=== PATIENT | female | born 1950 | race Caucasian/White ===

== ENCOUNTER 2017-01-22 15:44 | Emergency (ER) | payer MEDICARE ==
[2017-01-22 15:45] VITALS: BMI 29.5
[2017-01-22 15:53] VITALS: BP 151/83; PULSE 81; RESP 16; TEMP 97.8; O2SAT 95
--- NOTE | 2017-01-22 16:22 | ED PDOC ---
Upper Extremity Pain/Injury Time Seen by Provider: 01/22/17 15:57 Chief Complaint (Nursing): Upper Extremity Problem/Injury Chief Complaint (Provider): Left 3rd digit laceration History Per: Patient, Family (Daughter at bedside is translating in Hebrew for patient) Onset/Duration Of Symptoms: Hrs (prior to arrival) Additional History Per: Family Additional Complaint(s): Crystal Amato is a 66 year old right hand dominant female who presents to the emergency department with her daughter complaining of laceration to left 3rd digit sustained when patient was using a knife and accidentally cut her finger. She states she applied vaseline and came to ED. She has slight pain to affected area with no associated numbness or tingling. Patient is not sure of last tetanus. PMD: Maurice Garcia Past Medical History Reviewed: Historical Data, Nursing Documentation, Vital Signs Vital Signs: Last Vital Signs Temp 97.8 F 01/22/17 15:50 Pulse 81 01/22/17 15:50 Resp 16 01/22/17 15:50 BP 151/83 H 01/22/17 15:50 Pulse Ox 95 01/22/17 15:50 - Medical History PMH: No Chronic Diseases, Chronic Kidney Disease - Surgical History Surgical History: Cholecystectomy (26 YEARS AGO), Endoscopy - Family History Family History: States: No Known Family Hx - Living Arrangements Living Arrangements: With Family - Social History Current smoker - smoking cessation education provided: No Alcohol: None Drugs: Denies - Immunization History Hx Tetanus Toxoid Vaccination: No (not sure of last tetanus) - Home Medications Home Medications: Ambulatory Orders Medication Instructions Recorded No Known Home Med 05/01/16 - Allergies Allergies/Adverse Reactions: Allergies Allergy/AdvReac Type Severity Reaction Status Date / Time No Known Allergies Allergy Verified 05/01/16 10:49 Review of Systems ROS Statement: Except As Marked, All Systems Reviewed And Found Negative Musculoskeletal: Positive for: Hand Pain (Left 3rd digit laceration) Physical Exam - Reviewed Nursing Documentation Reviewed: Yes Vital Signs Reviewed: Yes - Physical Exam Appears: Positive for: Well, Non-toxic, No Acute Distress Skin: Positive for: Normal Color. Negative for: Rash Extremity: Positive for: Other (1.5 cm laceration to dorsal aspect of left third digit with minimal active bleeding, full rom of affected digit, normal sensation to wound and normal distal sensation) Neurologic/Psych: Positive for: Alert, Oriented - ECG O2 Sat by Pulse Oximetry: 95 (RA) Pulse Ox Interpretation: Normal Medical Decision Making Medical Decision Making: Initial Impression: 66 y/o female with laceration on dorsal aspect of left third digit Initial Plan: Lac repair Patient refused tetanus, states she prefers to check with her PMD before she receives booster. Patient was given wound care instructions. Scribe Attestation: Documented by Larry Diehl, acting as a scribe for Elisabet YOON. Provider Scribe Attestation: All medical record entries made by the Scribe were at my direction and personally dictated by me. I have reviewed the chart and agree that the record accurately reflects my personal performance of the history, physical exam, medical decision making, and the department course for this patient. I have also personally directed, reviewed, and agree with the discharge instructions and disposition. Procedures - Laceration/Wound Repair Left 3rd digit Wound Length (cm): 1 (1.5 cm total length) Wound Explored: clean Irrigated w/ Saline (ccs): 50 (wound was copiously irrigated with saline and betadine) Betadine Prep?: Yes Anesthesia: 1% Lidocaine Volume Anesthetic (ccs): 6 Wound Debrided: minimal Wound Repaired With: Sutures Suture Size/Type: 5:0 Number of Sutures: 3 Layer Closure?: No Wound Complexity: Simple Sterile Dressing Applied?: Yes Splint Applied?: No Disposition - Clinical Impression Clinical Impression: Finger laceration - Patient ED Disposition Is Patient to be Admitted: No Counseled Patient/Family Regarding: Diagnosis, Need For Followup - Disposition Referrals: Wilber Loza [Medical Doctor] - Disposition: Routine/Home Disposition Time: 17:41 Condition: STABLE Additional Instructions: Keep wound clean and dry. Over the counter advil or tylenol as needed for pain. Wound check 2-3 days. Suture removal 14 days. Check you tetanus vaccine status with your primary care doctor. Instructions: Finger Laceration (ED), Care For Your Stitches (ED) Forms: [employer] (Hebrew) Print Language: TURKISH
[2017-01-22] MEDS ORDERED: Lidocaine 1% Inj (20ml) IJ STA (16:46)
[2017-01-22] MEDS ORDERED: Lidocaine 1% Inj (20ml) ONE (16:47)
== END 2017-01-22 18:05 | disposition home or self-care (01) ==
LOC: H.ER 15:44
DX: S61.219A Laceration without foreign body of unspecified finger without damage to nail, initial encounter (principal); W26.0XXA Contact with knife, initial encounter; Y93.9 Activity, unspecified